=== PATIENT | female | born 1955 | race Caucasian/White ===

== ENCOUNTER → 2017-08-07 13:19 | Outpatient (CLI) | payer BC, SELFPAY ==
--- NOTE | 2017-08-07 13:35 | MR_ITS ---
MR shoulder RT wo con HISTORY: Right shoulder pain radiating down to the elbow with limited range of motion ITS.REASON: PAIN RADIATING TO RT SHOULDER, PAIN IN RT HAND ORDERING PHYSICIAN: Rocio Alvarado PATIENT AGE: 61 years COMPARISON: None TECHNIQUE: Standard multiplanar multiecho sequences are performed without contrast. FINDINGS: There are hypertrophic changes of the acromioclavicular joint with a small amount fluid in the AC joint with mild soft tissue swelling at this region. Small amount fluid is present inferior to the AC joint as well. There is mild subacromial stenosis at 5 mm. Thickening of the supraspinatus tendon with increased T2 signal posteriorly with a partial tear along the posterior aspect of the supraspinatus tendon is suspected. A full-thickness tear with tendinous and muscular retraction not present. Tendinopathy/tendinosis also involves the infraspinatus tendon without evidence of tear. No obvious labral tear. Mild subcortical cystic changes are present at the humeral head at the greater tuberosity. There is a small shoulder joint effusion. Bicipital tendon is in place with a small amount fluid surrounding the bicipital tendon. Subscapularis tendon and teres minor tendons are intact. IMPRESSION: 1. Acromioclavicular arthropathy with mild subacromial stenosis with mild impingement upon the supraspinatus tendon. 2. Tendinopathy/tendinosis of supraspinatus and infraspinatus tendons with partial tear of the posterior aspect of the supraspinatus tendon. 3. Subarticular cystic changes of the humeral head with small shoulder joint effusion and fluid within the bicipital tendon sheath which may be related to tendinitis
--- NOTE | 2017-08-07 14:30 | XR_ITS ---
XR hand RT min 3V HISTORY: ITS.REASON: RT HAND PAIN ORDERING PHYSICIAN: Rocio Alvarado PATIENT AGE: 61 years COMPARISON: None FINDINGS: No fracture or dislocation. No lytic or blastic change. There is normal mineralization.. There are mild osteoarthritic changes in the first interphalangeal joint. Small calcific density is present along the distal and radial aspect of the proximal phalanx of the middle finger nonspecific. IMPRESSION: No acute finding. 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
== END ==
PROVIDERS: Visit Provider Physician Assistant
DX: R05 Cough (principal); M25.819 Other specified joint disorders, unspecified shoulder; M79.641 Pain in right hand; M25.511 Pain in right shoulder; R09.82 Postnasal drip; J31.0 Chronic rhinitis; Z79.899 Other long term (current) drug therapy
CPT/HCPCS: 73130; 73221